=== PATIENT | female | born 1990 | race African-American/Black ===

== ENCOUNTER 2017-03-11 17:17 | Emergency (ER) | payer BC ==
[~2017-03-11] VITALS: Ht 147.3 cm; Wt 48.1 kg
[2017-03-11] MEDS ORDERED: MEDROLDOSEPACK PO (18:00)
[2017-03-11] MEDS ORDERED: CENTANY30 GM TOP (18:00)
[2017-03-11 18:14] VITALS: BP 132/71
== END 2017-03-11 18:14 | disposition home or self-care (01) ==
LOC: ER 17:17
DX: L73.9 Follicular disorder, unspecified (principal)